=== PATIENT | female | born 1970 | race Caucasian/White ===

== ENCOUNTER 2018-03-08 18:32 | Emergency (ER) | payer OTHER ==
[~2018-03-08] VITALS: Ht 152.4 cm; Wt 65.3 kg
== END 2018-03-08 21:07 | disposition home or self-care (01) ==
LOC: ER 18:32
DX: M94.0 Chondrocostal junction syndrome [Tietze] (principal)

== ENCOUNTER 2018-03-11 10:38 | Outpatient (CLI) | payer OTHER | END 2018-03-11 10:45 | disposition home or self-care (01) | LOC: MAMO-SONO 10:38 | DX: Z12.31 Encounter for screening mammogram for malignant neoplasm of breast (principal); N60.11 Diffuse cystic mastopathy of right breast; N60.12 Diffuse cystic mastopathy of left breast ==

== ENCOUNTER 2024-01-13 08:20 | Emergency (ER) | payer OTHER ==
[~2024-01-13] VITALS: Ht 160 cm; Wt 68.9 kg
[2024-01-13] MEDS ORDERED: ZYRTEC10 M3 PO (10:05)
[2024-01-13] MEDS ORDERED: AFRIN15 M1 NASAL (10:05)
== END 2024-01-13 10:17 | disposition home or self-care (01) ==
LOC: ER 08:21
DX: B34.9 Viral infection, unspecified (principal); Z20.822 Contact with and (suspected) exposure to COVID-19

== ENCOUNTER 2024-07-21 03:00 | Emergency (ER) | payer OTHER ==
[~2024-07-21] VITALS: Ht 160 cm; Wt 68.5 kg
[~2024-07-21 03:00] MED LIST: AFRIN15 M1 NASAL; ZYRTEC10 M3 PO
[2024-07-21 04:52] LABS: HEMOGLOBIN 13.1 g/dL (12.0-15.00); MEAN CORPUSCULAR HEMOGLOBIN 26.9 pg (27.00-32.0); MEAN CORPUSCULAR HGB CONC 33.6 g/dl (32.0-36.0); PLATELET COUNT 308 K/uL (150-450); RED BLOOD COUNT 4.87 M/uL (4.00-6.00); RED CELL DISTRIBUTION WIDTH 15.3 % (11.5-14.5)
== END 2024-07-21 05:28 | disposition home or self-care (01) ==
LOC: ER 03:03
DX: J10.1 Influenza due to other identified influenza virus with other respiratory manifestations (principal); J06.9 Acute upper respiratory infection, unspecified; Z20.822 Contact with and (suspected) exposure to COVID-19